=== PATIENT | female | born 1955 | race Caucasian/White ===

== ENCOUNTER 2020-03-06 11:20 | Emergency (ER) | payer BC, SELFPAY ==
--- NOTE | 2020-03-06 11:33 | ED.BACK ---
HPI - Back Pain/Injury General Chief Complaint: Back Pain/Injury Stated Complaint: Back pain Time Seen by Provider: 03/06/20 11:33 Source: patient and RN notes reviewed History of Present Illness HPI Narrative: Patient is a 64-year-old female who presents the urgent care with complaints of low back pain, mainly to the right side. Patient states she does have a history of sciatica and denies any radiation at this time. Patient states that started on Saturday and she has been using Tylenol which does improve the pain for short period. Patient denies of any urinary issues and states that she does have a history of kidney stones and this is not similar pain . Patient states that she does have a follow-up with the neurologist due to a kidney stone in the right kidney which is never caused her any issues. No other acute complaints. Denies of any injury or fall. No acute distress noted. Patient read the plan of care. Related Data Home Medications Medication Instructions Recorded Confirmed atorvastatin 40 mg PO DAILY 03/06/20 03/06/20 cyclobenzaprine 10 mg PO DAILY 03/06/20 03/06/20 gabapentin 600 mg PO DAILY 03/06/20 03/06/20 insulin glargine [Lantus Solostar 60 unit SUBCUT DAILY 03/06/20 03/06/20 U-100 Insulin] metoprolol succinate 25 mg PO DAILY 03/06/20 03/06/20 montelukast 10 mg PO DAILY 03/06/20 03/06/20 omeprazole 20 mg PO DAILY 03/06/20 03/06/20 potassium chloride 10 meq PO DAILY 03/06/20 03/06/20 sitagliptin [Januvia] 100 mg PO DAILY 03/06/20 03/06/20 telmisartan 40 mg PO DAILY 03/06/20 03/06/20 Allergies Allergy/AdvReac Type Severity Reaction Status Date / Time No Known Allergies Allergy Unverified 03/06/20 11:44 Review of Systems Review of Systems: Narrative: CONSTITUTIONAL: Denies fever, chills, or sweats. EYES: Denies visual changes, redness, or discharge. ENT: Denies rhinorrhea, congestion, sore throat, or otalgia. CARDIOVASCULAR: Denies chest pain, palpitations, or edema. RESPIRATORY: Denies cough or dyspnea. GASTROINTESTINAL: Denies abdominal pain, nausea, vomiting, or diarrhea. GENITOURINARY: Denies dysuria or hematuria. SKIN: Denies rash or itching. MUSCULOSKELETAL: Reports of low back pain mostly to the right side NEUROLOGIC: Denies headache, numbness, or weakness. All other systems reviewed are negative, except as documented in HPI. PMFSH Comments At the time of my signature, I reviewed and agree with the nursing past medical, surgical, social, and family history. There is no relevant family history pertinent to the patient complaint. Exam Narrative: Exam Narrative: GENERAL: This is a well-nourished, well-developed patient, in no apparent distress. HEAD: normocephalic, atraumatic. EYES: PERRL. Sclera clear/white. Vision is grossly intact. EARS: External ears normal NOSE: External nose normal with no obvious nasal discharge, nares without redness, no rhinorrhea. THROAT: Mucous membranes moist NECK: Neck supple SKIN: warm, intact with no suspicious lesions or rash, good texture and turgor. NEURO: awake, alert, and oriented to person, place and time. There were no obvious focal neurologic abnormalities. EXTREMITIES: No clubbing, cyanosis, or edema. BACK: Moderate right lumbar tenderness, negative CVA tenderness, negative SLE on the right, no piriformis tenderness on the right Course Vital Signs Vital signs: Vital Signs Temperature 98.7 F 03/06/20 11:42 Pulse Rate 87 03/06/20 11:42 Respiratory Rate 18 03/06/20 11:42 Blood Pressure 143/64 H 03/06/20 11:42 Pulse Oximetry 98 03/06/20 11:42 Temperature 98.7 F 03/06/20 11:42 Pulse Rate 87 03/06/20 11:42 Respiratory Rate 18 03/06/20 11:42 Blood Pressure 143/64 H 03/06/20 11:42 Pulse Oximetry 98 03/06/20 11:42 Reviewed?patient is informed that they may have pre-hypertension or hypertension based on a blood pressure reading in the department. I recommend the patient call the primary care provider listed on their discharg
[2020-03-06 11:42] VITALS: BP 143/64; PULSE 87; RESP 18; TEMP 37.1; O2SAT 98
== END 2020-03-06 12:05 | disposition home or self-care (01) ==
PROVIDERS: Emergency Provider Nurse Practitioner Family; PCP Family Medicine
DX: S39.012A Strain of muscle, fascia and tendon of lower back, initial encounter (principal); X58.XXXA Exposure to other specified factors, initial encounter; I10 Essential (primary) hypertension; E78.00 Pure hypercholesterolemia, unspecified
CPT/HCPCS: 99213; G0463

== ENCOUNTER 2024-01-25 14:31 | Emergency (ER) | payer MEDICARE, SELFPAY ==
[2024-01-25 14:46] VITALS: BP 155/73; PULSE 86; RESP 16; TEMP 36.1; O2SAT 98
--- NOTE | 2024-01-25 14:51 | ED.BACK ---
HPI - Back Pain/Injury General Chief Complaint: Back Pain/Injury Stated Complaint: Back Pain Time Seen by Provider: 01/25/24 14:54 Source: patient Mode of arrival: ambulatory Limitations: no limitations History of Present Illness HPI Narrative: Francheska is in a 68-year-old female patient presenting to the clinic today with complaints of left-sided flank pain is radiating into the left lateral side. She reports that she developed this pain 1 week ago. Denies any urinary symptoms. Denies any blood in her urine. No history of kidney stones. States that she has recently had a kidney infection with sepsis and was admitted into the ICU for several weeks. States the pain is very sharp, stabbing, burning in nature. Denies any known injury to her back. Denies having a rash. States that the pain is worse with movement. 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 Related Data Home Medications Medication Instructions Recorded Confirmed atorvastatin 40 mg tablet 40 mg PO DAILY 03/06/20 01/25/24 gabapentin 600 mg tablet 600 mg PO DAILY 03/06/20 01/25/24 insulin glargine 100 unit/mL (3 60 unit subcut DAILY 03/06/20 01/25/24 mL) subcutaneous pen (Lantus Solostar U-100 Insulin) metoprolol succinate 25 mg 25 mg PO DAILY 03/06/20 01/25/24 tablet,extended release 24 hr montelukast 10 mg tablet 10 mg PO DAILY 03/06/20 01/25/24 omeprazole 20 mg capsule,delayed 20 mg PO DAILY 03/06/20 01/25/24 release potassium chloride 10 mEq 10 meq PO DAILY 03/06/20 01/25/24 tablet,extended release sitagliptin phosphate 100 mg 100 mg PO DAILY 03/06/20 01/25/24 tablet (Januvia) telmisartan 40 mg tablet 40 mg PO DAILY 03/06/20 01/25/24 bupropion HCl 150 mg tablet,12 hr 150 mg PO DAILY 01/25/24 01/25/24 sustained-release docusate sodium 100 mg capsule 100 mg PO DAILY 01/25/24 01/25/24 dulaglutide 0.75 mg/0.5 mL 0.75 mg subcut WEEKLY 01/25/24 01/25/24 subcutaneous pen injector ([facility]) lactulose 10 gram/15 mL oral 15 ml PO DAILY 01/25/24 01/25/24 solution trazodone 100 mg tablet 100 mg PO DAILY 01/25/24 01/25/24 Allergies Allergy/AdvReac Type Severity Reaction Status Date / Time No Known Allergies Allergy Verified 01/25/24 14:32 Review of Systems Review of Systems: Pertinent positives per HPI. Patient denies any fever, chills, rash, headache, visual changes, dizziness, cough, runny nose, sore throat, shortness of breath, chest pain, palpitations, nausea, vomiting, diarrhea, constipation, abdominal pain, or any urinary issues. PMFSH Comments At the time of my signature, I reviewed and agree with the nursing past medical, surgical, social, and family history. There is no relevant family history pertinent to the patient complaint. Exam Narrative: General: Well-developed, well nourished, in no apparent distress. Head: Normocephalic, atraumatic. Cardio: Regular rate and rhythm, s1 and s2 normal, no murmur appreciated. Resp: Clear to auscultation bilaterally, no rhonchi, rales, wheezing or rubs. Abdomen: Soft, pliable, bowel sounds present in all quadrants, tender to palpation over the left flank, no organomegly, positive left CVAT tenderness. Course Course Emergency Course: Portions of this record may have been created with voice recognition software. Level of Care: Express Care Visit Vital Signs Vital signs: Vital Signs Temperature 36.1 C L 01/25/24 14:46 Pulse Rate 86 01/25/24 14:46 Respiratory Rate 16 01/25/24 14:46 Blood Pressure 155/73 H 01/25/24 14:46 Pulse Oximetry 98 01/25/24 14:46 Oxygen Delivery Room Air 01/25/24 14:46 Temperature 36.1 C L 01/25/24 14:46 Pulse Rate 86 01/25/24 14:46 Respiratory Rate 16 01/25/24 14:46 Blood Pressure 155/73 H 01/25/24 14:46 Pulse Oximetry 98 01/25/24 14:46 Oxygen Delivery Room Air 01/25/24 14:46 Vital signs reviewed MDM - Back Pain/Injury MDM Narrative Medical decision making narrative: At the time of visit [email or web address]
== END 2024-01-25 16:05 | disposition home or self-care (01) ==
PROVIDERS: Emergency Provider Nurse Practitioner Family; PCP Family Medicine
DX: N30.01 Acute cystitis with hematuria (principal); E78.00 Pure hypercholesterolemia, unspecified; I10 Essential (primary) hypertension; K21.9 Gastro-esophageal reflux disease without esophagitis; M19.90 Unspecified osteoarthritis, unspecified site; M79.7 Fibromyalgia; E11.9 Type 2 diabetes mellitus without complications; Z79.4 Long term (current) use of insulin; F32.A Depression, unspecified
CPT/HCPCS: 81003; 87086; 99213; G0463